=== PATIENT | female | born 1955 | race Caucasian/White ===

== ENCOUNTER 2018-05-17 02:12 | Observation (INO) | payer OTHER ==
[2018-05-17] MEDS ORDERED: Ondansetron INJ* 2 MG/ML VIAL IV ONE ×2 (02:25→02:40)
[2018-05-17] MEDS ORDERED: NS 0.9% 1000 ML* 1,000 ML IV ONE ×2 (02:25→02:40)
[2018-05-17] MEDS ORDERED: Morphine VIAL* 4 MG/ML VIAL (1 ml vial) IV ONE ×2 (02:25→02:40)
--- NOTE | 2018-05-17 02:37 | ED ---
Abdominal Pain/Female - HPI Summary HPI Summary: This patient is a 62 year old F presenting to [facility] with a chief complaint of sudden episodic LLQ abdominal pain once a week for the past three weeks. Pain suddenly began three weeks ago and resolved within a few hours. Pain suddenly returned two weeks later; she went to see her PCP and was diagnosed with a UTI. She has been taking ciprofloxacin since 05/13/18. Pain suddenly returned last night around 21:00 last night and has not resolved. Patient reports vomiting. Patient denies changes in BM and bloody stool or urine. Patient reports history of kidney stones, kidney infections, and uterine prolapse. - History of Current Complaint Chief Complaint: EDAbdPain Stated Complaint: ABD PAIN Time Seen by Provider: 05/17/18 02:24 Hx Obtained From: Patient Onset/Duration: Sudden Onset, Lasting Weeks Timing: Intermittent Episode Lasting Severity Initially: Moderate Severity Currently: Severe Pain Intensity: 10 Pain Scale Used: 0-10 Numeric Location: Discrete At: LLQ Alleviating Factor(s): Nothing Associated Signs and Symptoms: Positive: Vomiting. Negative: Constipation, Blood in Stool, Urinary Symptoms, Diarrhea Allergies/Adverse Reactions: Allergies Allergy/AdvReac Type Severity Reaction Status Date / Time No Known Allergies Allergy Verified 05/17/18 02:21 PMH/Surg Hx/FS Hx/Imm Hx Cardiovascular History: Denies: Hx Hypertension History: Reports: Hx Kidney Infection, Hx Kidney Stones, Other Problems/ Disorders - uterine prolapse - Surgical History Surgery Procedure, Year, and Place: none Infectious Disease History: No Infectious Disease History: Denies: Traveled Outside the [place] in Last 30 Days - Family History Known Family History: Negative: Cardiac Disease - Social History Occupation: Employed Full-time Alcohol Use: Rare Hx Tobacco Use: No Smoking Status (MU): Never Smoked Tobacco Review of Systems Positive: Abdominal Pain, Vomiting. Negative: Diarrhea Negative: hematuria All Other Systems Reviewed And Are Negative: Yes Physical Exam - Summary Physical Exam Summary: Appearance: Well-appearing, Well-nourished, lying in bed comfortably Skin: Warm, dry, no obvious rash Eyes: sclera anicteric, no conjunctival pallor ENT: mucous membranes moist, pharynx appears normal Neck: Supple, nontender Respiratory: Clear to auscultation, no signs of respiratory distress Cardiovascular: Normal S1, S2. No murmurs. Normal distal pulses in tibial and radial bilaterally. Abdomen: Soft, nontender, normal active bowel sounds present Musculoskeletal: Normal, Strength/ROM Intact Neurological: A&Ox3, awake and alert, mentation is normal, speech is fluent and appropriate Psychiatric: affect is normal, does not appear anxious or depressed Triage Information Reviewed: Yes Vital Signs On Initial Exam: Initial Vitals Temp Pulse Resp BP Pulse Ox 97.5 F 73 16 149/60 99 05/17/18 02:14 05/17/18 02:14 05/17/18 02:14 05/17/18 02:14 05/17/18 02:14 Vital Signs Reviewed: Yes Diagnostics - Vital Signs Vital Signs Temp Pulse Resp BP Pulse Ox 05/17/18 02:14 97.5 F 73 16 149/60 99 - Laboratory Result Diagrams: 05/17/18 02:58 05/17/18 02:58 Lab Statement: Any lab studies that have been ordered have been reviewed, and results considered in the medical decision making process. - EKG 0603 Cardiac Rate: NL - 75 BPM EKG Rhythm: Sinus Rhythm Summary of EKG Findings: LBBB Abdominal Pain Fem Course/Dx - Course Course Of Treatment: 62 year old F presenting with sudden episodic LLQ abdominal pain once a week for the past three weeks. Pain suddenly began three weeks ago and resolved within a few hours. Pain suddenly returned two weeks later; she went to see her PCP and was diagnosed with a UTI. She has been taking ciprofloxacin since 05/13/18. Pain suddenly returned last night around 21 :00 last night and has not resolved. Patient reports vomiting. Patient denies changes in BM and bloody stool or urine. Patient is given IV fluids, Zofran, Morphine, and Toradol. Bloodowork and UA is WNL. EKG is NSR at 75 BPM with a LBBB. Patient is signed out to Dr. Ramos awaiting a CT A/P. - Diagnoses Provider Diagnoses: Obstructive uropathy Discharge - Sign-Out/Discharge Documenting (check all that apply): Sign-Out Patient Signing out patient TO: Wong Ramos - CT A/P - Discharge Plan Condition: Stable Disposition: ADMITTED TO [facility] - Billing Disposition and Condition Condition: STABLE Disposition: Admitted to [facility] - Attestation Statements Document Initiated by Scribe: Yes Documenting Scribe: Barb Motley Provider For Whom Scribjose is Documenting (Include Credential): Jose Hernadez MD Scribe Attestation: I, Barb Motley, scribed for Jose Hernadez MD on 05/20/18 at 1813. Scribe Documentation Reviewed: Yes Provider Attestation: The documentation as recorded by the scribe, Barb Motley accurately reflects the service I personally performed and the decisions made by me, Jose Hernadez MD Status of Scribe Document: Viewed
[2018-05-17] MEDS ORDERED: Ketorolac INJ* 30 MG/ML 1 ML VIAL IV PUSH ONE ×2 (02:40→09:03)
[2018-05-17 03:05] LABS: ABS Basophils 0.1 10^3/ul (0-0.2); ABS Eosinophils 0.1 10^3/ul (0-0.6); ABS Lymphocytes 1.1 10^3/ul (1.0-4.8); ABS Monocytes 0.7 10^3/ul (0-0.8); ABS Neutrophils 9.5 10^3/ul (1.5-7.7); ABS Nucleated RBC 0 10^3/ul; Eosinophil % 0.6 %; Hematocrit 37 % (35-47); Hemoglobin 12.6 g/dl (12.0-16.0); Lymphocyte % 9.3 %; Mean Corpuscular HGB Conc 34 g/dl (31-36); Mean Corpuscular Hemoglobin 32 pg (27-31); Mean Corpuscular Volume 95 fL (80-97); Mean Platelet Volume 8.3 fL (7.4-10.4); Nucleated Red Blood Cells % 0; Platelet Count 221 10^3/ul (150-450); Red Cell Distribution Width 13 % (10.5-15); White Blood Count 11.3 10^3/ul (3.5-10.8)
[2018-05-17 03:21] LABS: Albumin 4.3 g/dL (3.2-5.2); Albumin/Globulin Ratio 1.8 (1-3); Calcium 9.1 mg/dL (8.6-10.3); EGFR Non-African American 55.8 (>60); Globulin 2.4 g/dL (2-4); Potassium 3.9 mmol/L (3.5-5.0); Total Bilirubin 0.5 mg/dL (0.2-1.0); Total Protein 6.7 g/dL (6.4-8.9)
[2018-05-17] MEDS ORDERED: Haloperidol INJ IV/IM* 5 MG/ML AMP IM ONE (03:49)
[2018-05-17] MEDS ORDERED: LORazepam INJ* 2 MG/ML 1 ML VIAL IM ONE (03:49)
[2018-05-17 05:21] LABS: Urine Appearance Cloudy; Urine Bilirubin Negative (Negative); Urine Blood Negative (Negative); Urine Color Yellow; Urine Glucose Negative (Negative); Urine Ketones 1+ (Negative); Urine Nitrite Negative (Negative); Urine Protein Negative (Negative); Urine Urobilinogen Negative (Negative)
[2018-05-17] MEDS ORDERED: Iodixanol* (CONTRAST) 320 MG/ML 100 ML SDV IV ONE (06:38)
--- NOTE | 2018-05-17 07:20 | ED ---
Progress - Progress Note Progress Note: The patient is a sign-out from Dr. Jose Hernadez MD, to Dr. Wong Ramos MD, at change of shift at 0700 pending Abd/Pel CT and disposition. At 0800, the patient's pain has improved, but she has very mild left CVA tenderness. In the ED course, she was administered Ns, Ciprofloxacin, and Toradol. Abd/Pel CT reveals 9mm calcification with hydronephrosis in the mid-level ureter consistent with obstructive uropathy, enlarged left ovarian vein and periuterine veins possibly secondary to PCS, hypoattenuating foci in the liver with benign cyst, and calcified atherosclerosis of lower abdominal aorta. With positive CT results, I consulted Dr. Peterson, urology, at 09:41, who suggests that the patient be admitted. He will place a stent at 15:00 today in the operating room. She does not appear septic. Dr. Flores accepts the patient for admission at 10:49. The patient is diagnosed with obstructive uropathy. She agrees with this plan and understands the need for admission and stent placement. - Results/Orders Results/Orders: Abd/Pel CT: 1. At the mid-level left ureter there is a 9 mm calcification with moderate ipsilateral hydronephrosis and left-sided perinephric fluid. CT findings are consistent with obstructive uropathy. 2. Incidentally noted is a pathologically enlarged left ovarian vein and dilated left periuterine veins, an appearance that could be seen in pelvic congestion syndrome (PCS). PCS is characterized clinically by chronic, gravity dependent pelvic pain, nonspecific GI symptoms, dyspareunia and/or superficial varicose veins overlying the lower extremities and pelvis. 3. Scattered hypoattenuating foci seen throughout the liver, the largest with a Hounsfield unit consistent with a benign cyst. The smaller foci are too small to characterize more fully. A benign etiology is favored but further characterization can be made with nonemergent ultrasound the liver if clinically warranted. 4. Calcified atherosclerosis of the lower abdominal aorta extending into the common iliac arteries. Please correlate to signs or symptoms of lower extremity arterial insufficiency. ED physician has reviewed this report. - Consult/PCP Time Called: 09:41 Consult/PCP: Dr. Phoenix Peterson, urology Consult Reason/Comments: He will place a stent at 15:00 in the OR. - Additional EKG/XRAY/Consults Time Called: 10:49 Consult/PCP: Dr. Latanya Flores, hospitalist Reason/Comments: She accepts the patient for admission. Re-Evaluation - Re-Evaluation First Eval Re-Evaluation Time: 08:00 Change: Improved Comment: Her pain has improved. She has very mild left CVA tenderness at this time. CT is pending. Second Eval Re-Evaluation Time: 10:40 Change: Unchanged Comment: I spoke with the patient concerning need for admission and stent placement. She will be admitted, and she will go to the OR at 15:[address] Peterson to place the stent. Course/Dx - Course Course Of Treatment: 62 year old F presenting with sudden episodic LLQ abdominal pain once a week for the past three weeks. Pain suddenly began three weeks ago and resolved within a few hours. Pain suddenly returned two weeks later; she went to see her PCP and was diagnosed with a UTI. She has been taking ciprofloxacin since 05/13/18. Pain suddenly returned last night around 21 :00 last night and has not resolved. Patient reports vomiting. Patient denies changes in BM and bloody stool or urine. Patient is given IV fluids, Zofran, Morphine, and Toradol. Bloodowork and UA is WNL. EKG is NSR at 75 BPM with a LBBB. Patient is signed out to Dr. Ramos awaiting a CT A/P. - Diagnoses Provider Diagnoses: Obstructive uropathy Discharge - Sign-Out/Discharge Documenting (check all that apply): Patient Departure - Patient will be admitted to [facility] for further care by Dr. Flores and stent placement by Dr. Peterson., Receiving Sign-Out Receiving patient FROM: Jose Hernadez - The patient is a sign-out from Dr. Jose Hernadez MD, to Dr. Wong Ramos MD, at change of shift at 0700 pending Abd/Pel CT and disposition. - Discharge Plan Condition: Stable Disposition: ADMITTED TO [facility] Referrals: No Primary Care Phys,NOPCP [Primary Care Provider] - - Billing Disposition and Condition Condition: STABLE Disposition: Admitted to [facility] - Attestation Statements Document Initiated by Scribe: Yes Documenting Scribe: Sheridan Andrews Provider For Whom Scribe is Documenting (Include Credential): Dr. Wong Ramos MD Scribe Attestation: I, Sheridan Andrews, scribed for Dr. Wong Ramos MD on 05/17/18 at 1058. Scribe Documentation Reviewed: Yes Provider Attestation: The documentation as recorded by the Sheridan colon accurately reflects the service I personally performed and the decisions made by me, Dr. Wong Ramos MD Status of Scribe Document: Viewed
[2018-05-17] MEDS ORDERED: Ciprofloxacin 400MG IVPREMIX(* 400 MG/200 ML BAG IVPB ONE (09:05)
[2018-05-17] MEDS ORDERED: NS 0.9% 1000 ML* 1,000 ML IV SCH (10:30)
[2018-05-17] MEDS ORDERED: Buffered Lidocaine 0.9% SYRIN* 5 ML/SYR SYRINGE INTRADERM ONE (10:46)
[2018-05-17] MEDS ORDERED: Lactated Ringers 1000 ML Bag* 1,000 ML IV SCH (11:00)
[2018-05-17] MEDS ORDERED: Morphine VIAL* 4 MG/ML VIAL (1 ml vial) IV PRN (11:31)
[2018-05-17] MEDS ORDERED: Ketorolac INJ* 15 MG/ML 1 ML VIAL IV PUSH PRN (11:31)
[2018-05-17] MEDS ORDERED: PROCHLORPERAZINE INJ 5 MG/ML 2 ML VIAL IV PRN (11:31)
[2018-05-17] MEDS ORDERED: Acetaminophen TAB* 325 MG PO PRN ×2 (11:32→16:35)
[2018-05-17] MEDS ORDERED: oxyCODONE TAB* 5 MG TAB PO PRN (16:35)
[2018-05-17] MEDS ORDERED: HYDROmorphone INJ1* 1 MG/ML SYRINGE IV PRN (16:35)
[2018-05-17] MEDS ORDERED: Naloxone* 0.4 MG/ML 1 ML VIAL IV PRN (16:35)
--- NOTE | 2018-05-17 16:54 | HP ---
CC: Dr. Kim Schwartz, [place], [place], phone number [phone]; Dr. Peterson HISTORY AND PHYSICAL: DATE OF ADMISSION: 05/17/18 TIME OF EVALUATION: 11:15 a.m. PRIMARY CARE PROVIDER: Dr. Kim Schwartz. CONSULTING UROLOGIST: Dr. Peterson. CHIEF COMPLAINT: Abdominal pain. HISTORY OF PRESENT ILLNESS: Ms. Johnson is a 62-year-old lady with a past medical history of nephrolit hiasis, recently diagnosed with a UTI, who presents to the emergency room with complaints of severe s harp left lower quadrant pain. The patient is visiting family from [place] and she states that prior to her trip, she started to have some dysuria and frequency. She was seen by her primary care provider and had urinalysis and wa s told that she had a urinary tract infection. She was prescribed ciprofloxacin that she is supposed to complete tomorrow. She states that her urinary symptoms were improving a little, but overnight s he developed severe left lower quadrant pain stabbing in nature, associated with nausea and 1 episode of vomiting. In the emergency room, she received symptomatic treatment with improvement, but CT of the abdomen and pelvis showed obstructive uropathy, reason why the hospitalist service was called for evaluation. She denies fever, chills, chest pain, palpitations, shortness of breath. The patient states that she is able to ambulate long distances, go up flight of stairs with no sympto ms at all. She states that she is aware of her left bundle-branch block and her primary care provider told her t hat this is not new and she did not need any further testing. PAST MEDICAL HISTORY: Nephrolithiasis. MEDICATION LIST: Ciprofloxacin 500 mg p.o. b.i.d., to be completed on 05/18/18. ALLERGIES: No known drug allergies. FAMILY HISTORY: Her mother had a history of renal failure secondary to uterine prolapse and she of pulmonary embolism that was provoked during the hospital stay. Father of colon cancer. SOCIAL HISTORY: She denies alcohol, drug, or tobacco use. Surrogate decision maker is her son, Esteban Johnson. Phone number is [phone]. REVIEW OF SYSTEMS: A 14-point review of systems was performed and all the pertinent negative and pos itive findings are in the HPI. PHYSICAL EXAMINATION GENERAL: The patient is a pleasant lady, lying in the ER stretcher, in no acute distress. VITAL SIGNS: Temperature 98.6, heart rate is 73, respiratory rate is 17, oxygen saturation 96% on ro om air, blood pressure is 130/58. HEENT: Pupils are equal. Moist mucous membranes. CHEST: Breath sounds present bilaterally with no added sounds. CARDIOVASCULAR: Normal S1, S2. Regular rate and rhythm. ABDOMEN: Soft, nontender, nondistended. Bowel sounds are present. EXTREMITIES: No edema. NEUROLOGIC: She is alert and oriented x3. Able to move all 4 extremities. DIAGNOSTIC STUDIES/LAB DATA: The patient had a CBC that showed a WBC of 11.3, hemoglobin of 12.6, h ematocrit of 37, platelets of 221 with 83% neutrophils. Chemistry showed a sodium of 140, potassium o f 3.9, chloride of 107, bicarb of 24, BUN of 20, creatinine of 1, glucose of 158, calcium of 9.1. LF Ts are normal. Urinalysis showed 1+ ketones. CT of the abdomen and pelvis showed that at the mid level left ureter, there is a 9 mm calcification with moderate ipsilateral hydronephrosis and left-sided perinephric fluid consistent with obstructive uropathy. Incidentally noted a pathologically enlarged left ovarian vein and dilated left parauteri ne vein and appearance that could be seen in pelvic congestion syndrome. Scattered hypoattenuating f oci seen throughout the liver, the largest is consistent with a benign cyst, further characterization can be made with nonemergent ultrasound of the liver. Calcified atherosclerosis of the lower abdomi nal aorta extending into the common iliac arteries. EKG done on 05/17/18 at 6:03 a.m. shows sinus rhythm at 75 beats per minute with a left bundle-branch block. There is no prior EKG to compare. ASSESSMENT AND PLAN: Ms. oJhnson is a 62-year-old lady with a past medical history of nephrolithiasis, who presents to the emergency room with complaints of left lower quadrant pain, found to have obstru ctive uropathy. 1. Obstructive uropathy. The patient is aware that she has kidney stones in the right kidney, but t he fact that she has it in the left is news to her. I called the doctor on-call for her PCP's office , Dr. Jimenez, and she tells me that the patient's urinalysis was abnormal and her urine culture grew co agulase-negative staphylococcus greater than 100,000 colonies sensitive to Cipro. She also tells me that the patient's left bundle-branch block is not new. She will fax records so we can have it docum ented in the patient's chart. The patient will be continued on ciprofloxacin for her urinary tract infection and Dr. Peterson will see her in consultation for a possible cystoscopy and stent placement to alleviate her obstructive ur opathy. The patient's RCRI is 0 predicting a 0.4% to 0.5% risk of cardiac complications. I believe the patie nt is optimized to proceed with a proposed surgical procedure without further cardiac workup. 2. DVT prophylaxis: The patient has a score of 2 and she will have SCDs for now in preparation for surgery. 3. Code status is full. TIME SPENT: Approximately 45 minutes was spent with the patient's interview, medical records review, physical examination to complete this admission, more than half of this time was spent [id number] with the patient and coordination of care. [id number]/[facility] #: [id number]
[2018-05-17] MEDS ORDERED: fentaNYL* 50 MCG/ML 2 ML VIAL (100 MCG VIAL) ONE (17:02)
[2018-05-17] MEDS ORDERED: Midazolam* 1 MG/ML 2 ML VIAL (2 MG) ONE (17:02)
[2018-05-17] MEDS ORDERED: Iohexol 180 (CONTRAST) 10 ML SDV IV ONE (17:25)
[2018-05-17] MEDS ORDERED: cefTRIAXone(*) 1 GM ADVAN/BAG ONE (17:32)
[2018-05-17] MEDS ORDERED: Lidocaine 2% PF * 5 ML VIAL ONE (17:44)
[2018-05-17] MEDS ORDERED: Metoclopramide IV* 5 MG/ML 2 ML VIAL ONE (17:57)
[2018-05-17] MEDS ORDERED: Dexamethasone IV* 4 MG/ML 1 ML (4 MG) ONE (17:57)
[2018-05-17] MEDS ORDERED: Ondansetron INJ* 2 MG/ML VIAL ONE (17:57)
[2018-05-17] MEDS ORDERED: EPHEDrine (Pressors)* 50 MG/ML VIAL ONE (18:02)
[2018-05-17 19:47] VITALS: BP 115/44
[2018-05-17] MEDS ORDERED: Ciprofloxacin 400MG IVPREMIX(* 400 MG/200 ML BAG IVPB SCH (21:00)
--- NOTE | 2018-05-17 23:24 | OP ---
CC: Dr. Kim Schwartz, fax number [phone], primary care physician, [place], [place] OPERATIVE REPORT: DATE OF OPERATION: 05/17/18 DATE OF : 51 SURGEON: Phoenix Peterson MD ANESTHESIOLOGIST: Dr. Shields. ANESTHESIA: General. PRE-OPERATIVE DIAGNOSES: 1. Left renal colic. 2. Obstructing mid left ureteral calculus (1 cm). POST-OPERATIVE DIAGNOSES: 1. Left renal colic. 2. Obstructing mid left ureteral calculus (1 cm). OPERATIVE PROCEDURE: 1. Cystoscopy. 2. Left retrograde pyelography. 3. Placement of left ureteral stent (6-Chadian). INDICATION FOR PROCEDURE: Ms. Johnson is a 62-year-old white female who lives in [place], [place] and who is here for the Holidays visiting her family in [place]. She presented to the emergency room this morning with symptoms of left renal colic. She had no fever or chills. Her urinalysis showed microscopic hematuria, but no white cells or infection. Her renal function was normal. CT of the abdomen and pelvis showed a 1-cm obstructing calculus in the mid left ureter. No other abnormalities were noted. She just completed a course of Cipro for cystitis episode. Because of the above history and findings, the size of the stone and its location, decision was made to urgently place a left ureteral stent in preparation for her travel home, and for definitive treatment of the stone. PATHOLOGY AT CYSTOSCOPY: The bladder mucosa looked normal. There were no suspicious bladder lesions seen. The ureteral orifices looked normal. Upon left retrograde pyelography, there was minimal degree of dilatation of the collecting system, but that was after decompressing the system with the open- ended catheter. No abnormal calcifications were noted at fluoroscopy. DESCRIPTION OF PROCEDURE: After successful general anesthesia, the patient was placed in the lithotomy position and was prepped and draped for a cystoscopy. Cystoscopy was performed. The bladder was inspected and the above findings were noted. A flexible tip hybrid wire was introduced into the left orifice and positioned in the area of the renal pelvis. A size 5-Chadian open-ended catheter was fed on top of the guidewire and positioned in the area of the renal pelvis. There was a hydronephrotic drip, which was drained. After the hydronephrotic drip slowed down, 3 cc of non-diluted contrast were injected delineating the collecting system. A 6-Chadian stent was then placed with the proximal end coiling in the collecting system and the distal end coiling inside the bladder. There was good drainage of contrast from the kidney and no extravasation. The patient tolerated the procedure well and left the operating room in good condition. The patient is leaving [place], [place] tomorrow back to her home in [place]. She was instructed to obtain a referral from her primary care physician for Urology consultation. She will need definitive treatment of the stone and ultimately removal of the left ureteral stent. A CD of her CT was provided to the patient. A copy of this report will be faxed to Dr. Kim Macdonald, her Primary Care Physician. [id number]/[facility] #: [id number] MTDD
== END 2018-05-17 19:30 | disposition home or self-care (01) ==
LOC: ED 02:12 → SSU 11:15
PROVIDERS: ADMIT Internal Medicine; ATTEND Urology
DX: N23 Unspecified renal colic (principal); N20.1 Calculus of ureter; R10.32 Left lower quadrant pain; R10.9 Unspecified abdominal pain; Z87.442 Personal history of urinary calculi; N39.0 Urinary tract infection, site not specified; R11.10 Vomiting, unspecified
CPT/HCPCS: 36415; 74177; 74420; 80053; 81003; 83690; 85025; 93005; 96374; 96375; 99284; G0378; J0696; J0744; J1100; J1885; J2250; J2270; J2405; J2765; J3010; Q9967